=== PATIENT | female | born 1995 | race Hispanic/Latino ===

== ENCOUNTER → 2016-07-04 | Outpatient (REF) | payer BC ==
[2016-07-04 19:37] LABS: BASO % 0.4 % (0.0-1.0); EOS # 0.2 K/mm3 (0.0-0.50); EOS % 2.3 % (0.0-3.0); LARGE UNSTAINED CELL # 0.2 K/mm3 (0.0-0.4); LARGE UNSTAINED CELL % 2.5 % (0.0-4.0); LYMPH # 2.1 K/mm3 (1.5-6.5); LYMPH % 29.6 % (24.0-44.0); MEAN CORPUSCULAR HEMOGLOBIN 24.6 pg (27.0-33.0); MEAN CORPUSCULAR HGB CONC 30.8 g/dl (32.0-36.5); MEAN CORPUSCULAR VOLUME 79.9 fl (80.0-96.0); MONO # 0.4 K/mm3 (0.0-0.8); MONO % 5.4 % (0.0-5.0); NEUTROPHILS # 4.2 K/mm3 (1.8-7.7); NEUTROPHILS % 59.8 % (36.0-66.0); PLATELET COUNT, AUTOMATED 296 k/mm3 (150-450); RED CELL DISTRIBUTION WIDTH 15.7 % (11.5-14.5)
[2016-07-04 20:25] LABS: FERRITIN 8 NG/ML (8-252); PERCENT SATURATION 42.7 % (13.2-37.4); TOTAL IRON BINDING CAPACITY 443 UG/DL (250-450)
[2016-07-04 20:29] LABS: VITAMIN B12 LEVEL 874 PG/ML
[2016-07-04 20:30] LABS: FOLATE > 24.0 NG/ML
== END ==
LOC: M SFHCADAM 13:52
PROVIDERS: ATTEND Physician Assistant Medical
DX: Z86.2 Personal history of diseases of the blood and blood-forming organs and certain disorders involving the immune mechanism (principal)

== ENCOUNTER 2016-09-30 19:30 | Emergency (ER) | payer BC, OTHER ==
[~2016-09-30] VITALS: Ht 160 cm; Wt 68.0 kg
[2016-09-30 19:38] VITALS: BP 125/88
[2016-09-30] MEDS ORDERED: TOPA50TA7 PO (19:42)
[2016-09-30] MEDS ORDERED: SUMA25TA3 (19:42)
[2016-09-30] MEDS ORDERED: NAPR500T PO (20:17)
[2016-09-30] MEDS ORDERED: VALI5TAB PO (20:17)
== END 2016-09-30 20:31 | disposition home or self-care (01) ==
LOC: M ED 20:22
DX: M54.5 Low back pain (principal)

== ENCOUNTER → 2016-11-07 | Outpatient (REF) | payer OTHER ==
[~2016-11-07] MED LIST: NAPR500T PO; SUMA25TA3; TOPA50TA7 PO; VALI5TAB PO
[2016-11-07 22:08] LABS: BASO % 0.4 % (0.0-1.0); EOS # 0.2 K/mm3 (0.0-0.50); EOS % 1.6 % (0.0-3.0); LARGE UNSTAINED CELL # 0.2 K/mm3 (0.0-0.4); LARGE UNSTAINED CELL % 1.7 % (0.0-4.0); LYMPH # 2.4 K/mm3 (1.5-6.5); LYMPH % 25.5 % (24.0-44.0); MEAN CORPUSCULAR HGB CONC 33.2 g/dl (32.0-36.5); MEAN CORPUSCULAR VOLUME 90.3 fl (80.0-96.0); MONO # 0.5 K/mm3 (0.0-0.8); MONO % 4.8 % (0.0-5.0); NEUTROPHILS # 6.2 K/mm3 (1.8-7.7); NEUTROPHILS % 65.9 % (36.0-66.0); PLATELET COUNT, AUTOMATED 284 k/mm3 (150-450); RED CELL DISTRIBUTION WIDTH 12.7 % (11.5-14.5); WHITE BLOOD COUNT 9.4 K/mm3 (4.0-10.0)
== END ==
LOC: M LAB REF 10:04
PROVIDERS: ATTEND Physician Assistant
DX: R59.0 Localized enlarged lymph nodes (principal)

== ENCOUNTER → 2017-03-03 | Outpatient (CLI) | payer OTHER ==
[~2017-03-03] MED LIST changes: -TOPA50TA7 PO; +TOPA50TA8 PO
--- NOTE | 2017-03-03 18:45 | REP ---
Focused left breast sonography: History: Left breast enlargement. Findings: Retroareolar scanning in the left breast demonstrates heterogeneous fibroglandular background echotexture. No mass, cyst, architectural distortion or acoustic shadowing is seen. Impression: BIRADS category II benign focused left breast sonography. Clinical follow-up is advised. Signed by José Miguel Alvarez MD 03/03/2017 06:56 P
== END ==
LOC: M RAD 17:19
PROVIDERS: ATTEND Physician Assistant
DX: N64.9 Disorder of breast, unspecified (principal)

== ENCOUNTER → 2017-07-03 | Outpatient (REF) | payer OTHER | LOC: M LAB REF 18:55 | DX: M54.5 Low back pain (principal) | CPT/HCPCS: 87086 ==

== ENCOUNTER → 2017-07-17 | Outpatient (REF) | payer OTHER ==
[2017-07-17 22:29] LABS: HEMATOCRIT 36.9 % (36.0-47.0); HEMOGLOBIN 11.6 g/dl (12.0-16.0); MEAN CORPUSCULAR HGB CONC 31.4 g/dl (32.0-36.5); MEAN CORPUSCULAR VOLUME 92.3 fl (80.0-96.0); PLATELET COUNT, AUTOMATED 245 10^3/uL (150-450); RED CELL DISTRIBUTION WIDTH 13.6 % (11.5-14.5)
[2017-07-17 22:44] LABS: ALBUMIN/GLOBULIN RATIO 1.25 (1.00-1.93); ALKALINE PHOSPHATASE 60 U/L (45-117); ALT/SGPT 40 U/L (12-78); ANION GAP 6 MEQ/L (8-16); AST/SGOT 18 U/L (7-37); BILIRUBIN,TOTAL 0.2 MG/DL (0.2-1.0); BLOOD UREA NITROGEN 14 MG/DL (7-18); CARBON DIOXIDE LEVEL 29 MEQ/L (21-32); CHLORIDE LEVEL 107 MEQ/L (98-107); FERRITIN 28 NG/ML (8-252); GLOMERULAR FILTRATION RATE > 60.0 (>60); GLUCOSE, FASTING 123 MG/DL (70-100); IRON (FE) 75 UG/DL (50-170); PERCENT SATURATION 21.9 % (13.2-45.0); POTASSIUM SERUM 3.7 MEQ/L (3.5-5.1); SODIUM LEVEL 142 MEQ/L (136-145); TOTAL IRON BINDING CAPACITY 343 UG/DL (250-450); TOTAL PROTEIN 7.2 GM/DL (6.4-8.2)
[2017-07-18 10:52] LABS: VITAMIN B12 LEVEL 953 PG/ML
[2017-07-18 10:53] LABS: FOLATE > 24.0 NG/ML
== END ==
LOC: M SFHCADAM 14:01
DX: N64.4 Mastodynia (principal); R53.82 Chronic fatigue, unspecified; R63.5 Abnormal weight gain; D50.9 Iron deficiency anemia, unspecified

== ENCOUNTER → 2017-10-24 | Outpatient (REF) | payer OTHER ==
[2017-10-24 18:49] LABS: BASO % 0.4 % (0.0-1.0); EOS # 0.1 10^3/uL (0.0-0.50); EOS % 0.9 % (0.0-3.0); HEMATOCRIT 40.7 % (36.0-47.0); HEMOGLOBIN 13.4 g/dl (12.0-15.5); IMMATURE GRANULOCYTE % 0.3 % (0-3.0); LYMPH # 2.6 10^3/uL (1.5-6.5); LYMPH % 24.4 % (24.0-44.0); MEAN CORPUSCULAR HEMOGLOBIN 28.9 pg (27.0-33.0); MEAN CORPUSCULAR HGB CONC 32.9 g/dl (32.0-36.5); MEAN CORPUSCULAR VOLUME 87.9 fl (80.0-96.0); MONO # 0.6 10^3/uL (0.0-0.8); NEUTROPHILS # 7.2 10^3/uL (1.8-7.7); PLATELET COUNT, AUTOMATED 278 10^3/uL (150-450); RED BLOOD COUNT 4.63 10^6/uL (4.00-5.40); RED CELL DISTRIBUTION WIDTH 12.9 % (11.5-14.5); WHITE BLOOD COUNT 10.5 10^3/uL (4.0-10.0)
[2017-10-24 19:03] LABS: FERRITIN 19 NG/ML (8-252); IRON (FE) 61 UG/DL (50-170); PERCENT SATURATION 16.4 % (13.2-45.0); TOTAL IRON BINDING CAPACITY 371 UG/DL (250-450)
[2017-10-24 21:12] LABS: TOTAL 25(OH) VITAMIN D 28.9 NG/ML (30.0-100.0)
== END ==
LOC: M SFHCADAM 15:41
DX: E55.9 Vitamin D deficiency, unspecified (principal); D50.9 Iron deficiency anemia, unspecified

== ENCOUNTER → 2017-10-28 | Outpatient (REF) | payer OTHER ==
[2017-10-29 09:44] LABS: HCG, SERUM QUANTITATIVE 373 MIU/ML
== END ==
LOC: M SFHCADAM 09:16
DX: N91.2 Amenorrhea, unspecified (principal)

== ENCOUNTER → 2017-12-04 | Outpatient (CLI) | payer OTHER ==
[2017-12-04 20:07] LABS: BASO % 0.3 % (0.0-1.0); EOS # 0.2 10^3/uL (0.0-0.50); EOS % 1.6 % (0.0-3.0); HEMATOCRIT 38.4 % (36.0-47.0); HEMOGLOBIN 12.7 g/dl (12.0-15.5); IMMATURE GRANULOCYTE % 0.4 % (0-3.0); LYMPH # 2.2 10^3/uL (1.5-6.5); LYMPH % 20.1 % (24.0-44.0); MEAN CORPUSCULAR HGB CONC 33.1 g/dl (32.0-36.5); MEAN CORPUSCULAR VOLUME 87.7 fl (80.0-96.0); MONO # 0.7 10^3/uL (0.0-0.8); MONO % 6.7 % (0.0-5.0); NEUTROPHILS # 7.6 10^3/uL (1.8-7.7); NEUTROPHILS % 70.9 % (36.0-66.0); PLATELET COUNT, AUTOMATED 285 10^3/uL (150-450); RED BLOOD COUNT 4.38 10^6/uL (4.00-5.40); RED CELL DISTRIBUTION WIDTH 13.3 % (11.5-14.5); WHITE BLOOD COUNT 10.7 10^3/uL (4.0-10.0)
[2017-12-04 21:51] LABS: CHLAMYDIA DNA AMPLIFICATION NEGATIVE (NEGATIVE); GC DNA AMPLIFICATION NEGATIVE (NEGATIVE)
[2017-12-05 10:25] LABS: RUBELLA IgG QUALITATIVE IMMUNE (IMMUNE)
[2017-12-05 10:37] LABS: HBsAg Prenatal NEGATIVE (NEGATIVE)
[2017-12-05 10:56] LABS: HEPATITIS C VIRUS ABY INDEX 0.1 INDEX (<0.8)
[2017-12-05 10:57] LABS: HIV 1&2 SCREEN CENTAUR NEGATIVE (NEGATIVE)
== END ==
LOC: M ADAMS 17:29
DX: Z34.81 Encounter for supervision of other normal pregnancy, first trimester (principal); Z3A.08 8 weeks gestation of pregnancy
CPT/HCPCS: 86762

== ENCOUNTER → 2018-02-05 | Outpatient (CLI) | payer OTHER | LOC: M RAD 09:05 | DX: Z34.82 Encounter for supervision of other normal pregnancy, second trimester (principal); Z36.89 Encounter for other specified antenatal screening; Z3A.18 18 weeks gestation of pregnancy | CPT/HCPCS: 76811 ==

== ENCOUNTER → 2018-02-25 | Outpatient (CLI) | payer OTHER | LOC: M RAD 10:05 | DX: Z36.89 Encounter for other specified antenatal screening (principal); Z3A.22 22 weeks gestation of pregnancy | CPT/HCPCS: 76816 ==

== ENCOUNTER → 2018-04-01 | Outpatient (CLI) | payer OTHER ==
[2018-04-01 13:13] LABS: HEMATOCRIT 33.7 % (36.0-47.0); HEMOGLOBIN 10.9 g/dl (12.0-15.5); MEAN CORPUSCULAR HEMOGLOBIN 29.4 pg (27.0-33.0); MEAN CORPUSCULAR HGB CONC 32.3 g/dl (32.0-36.5); MEAN CORPUSCULAR VOLUME 90.8 fl (80.0-96.0); PLATELET COUNT, AUTOMATED 269 10^3/uL (150-450); RED BLOOD COUNT 3.71 10^6/uL (4.00-5.40); RED CELL DISTRIBUTION WIDTH 12.8 % (11.5-14.5); WHITE BLOOD COUNT 10.5 10^3/uL (4.0-10.0)
[2018-04-01 13:30] LABS: GLUCOSE CHALLENGE TEST 1 HOUR 98 MG/DL (LESS THAN 140)
[2018-04-02 08:47] LABS: TYPE AND SCREEN 1 1
== END ==
LOC: M LAB 11:36
DX: Z34.82 Encounter for supervision of other normal pregnancy, second trimester (principal); Z3A.00 Weeks of gestation of pregnancy not specified
CPT/HCPCS: 82950

== ENCOUNTER → 2018-06-12 | Outpatient (REF) | payer OTHER ==
[~2018-06-12] MED LIST changes: +NAPR-50 PO; -NAPR500T PO
== END ==
LOC: M LAB REF 12:44
PROVIDERS: ATTEND Advanced Practice Midwife
DX: Z34.93 Encounter for supervision of normal pregnancy, unspecified, third trimester (principal)

== ENCOUNTER 2018-07-01 15:00 | Inpatient (IN) | payer OTHER ==
[~2018-07-01] VITALS: Ht 160 cm; Wt 88.8 kg
[2018-07-01 15:17] VITALS: BP 128/80
[2018-07-01] MEDS ORDERED: MAPA500T2 PO (15:20)
[2018-07-01] MEDS ORDERED: LR 1,000 ML IV SCH (15:46)
[2018-07-01] MEDS ORDERED: LACTATED RINGER'S 1000 ML IV STA (15:46)
[2018-07-01] MEDS ORDERED: PENICILLIN G POTASSIUM IV 5 MU in D5W MINI-BAG PLUS 100 ML IV STA (15:46)
--- NOTE | 2018-07-01 16:06 | HPE ---
DATE OF ADMISSION: 07/01/2018 Ana Luisa is a 23-year-old 2, para 1-0-0-1 at 39-4/7 weeks gestation with an estimated date of confinement (EDC) of 07/04/2018 based on last menstrual period and confirmed by first trimester ultrasound. She presents to labor and delivery today with report of onset of uncomfortable contractions at approximately 09:30. She does report that they continue to get more painful and closer together. She reports that they are about every four minutes apart. She does report some light spotting. Denies leakage of fluid. The fetus has been active. Her care was initiated at [facility] in the first trimester. Her course complicated by a prior section with a desire for a trial of labor after section today. OBSTETRIC HISTORY: February 2010 at 39-2/7 weeks, 6 pounds, 2 ounce female, underwent primary section for breech presentation. OBSTETRIC LABORATORY DATA: A negative. Antibody screen negative, rubella immune, VDRL nonreactive. Urine culture no growth. Hepatitis B surface antigen negative. HIV negative. Hepatitis C antibody nonreactive. Gonorrhea and chlamydia negative. She did not have genetic serum screening laboratories done. Gestational diabetic screening normal at 98 and her GBS is positive. PAST MEDICAL HISTORY: History of an abnormal Pap smear. PAST SURGICAL HISTORY: section. FAMILY HISTORY: Diabetes, heart disease. SOCIAL HISTORY: The patient is single. The father of the baby is at bedside and supportive as well as family members. She is a nonsmoker. She denies alcohol and drug use. She denies any history of any sexually transmitted infections and denies history of abuse, physical, sexual and emotional. ALLERGIES: No known drug allergies. Reports an allergy to CASHEWS. CURRENT MEDICATIONS: Include vitamins, vitamin D, fish oil, folic acid, Fioricet as needed, and calcium. OBJECTIVE: Temperature 98.5, pulse 88, respirations 18, blood pressure is 128/80. She does appear uncomfortable. She is moaning with her contractions. heart rate is 135 with moderate variability, positive accelerations, no decelerations. Contractions are every three minutes. Abdomen is gravid, cephalic presentation. Estimated weight 7 pounds. Sterile vaginal examination: 4 cm dilated, 80% effaced, zero station, normal show. Membranes are intact. ASSESSMENT: Intrauterine at 39-4/7 weeks, heart rate category 1, early latent labor. PLAN: Admit the patient to labor and delivery. Routine laboratories. Start antibiotics for group B Streptococcus (GBS) prophylaxis. Clear liquid diet. The patient does request an epidural when her labor is uncomfortable. I will have an IV fluid bolus prior to epidural insertion. I do anticipate continued labor progress. May consider assisted rupture of membranes to augment her labor as well as IV Pitocin as needed. Dr. Parra made aware of the patient's presentation and latent labor at this time.
[2018-07-01 16:27] LABS: HEMATOCRIT 34.5 % (36.0-47.0); HEMOGLOBIN 10.9 g/dl (12.0-15.5); MEAN CORPUSCULAR HEMOGLOBIN 26.6 pg (27.0-33.0); MEAN CORPUSCULAR HGB CONC 31.6 g/dl (32.0-36.5); MEAN CORPUSCULAR VOLUME 84.1 fl (80.0-96.0); PLATELET COUNT, AUTOMATED 192 10^3/uL (150-450); WHITE BLOOD COUNT 13.3 10^3/uL (4.0-10.0)
[2018-07-01] MEDS ORDERED: FENTANYL 2MCG/ML ROPIVACAINE 0.2% IN 0.9% NACL 100ML IVBAG As Ordered ONE (17:34)
[2018-07-01] MEDS ORDERED: ONDANSETRON 4MG/2ML VIAL (J2405) IV PRN ×2 (19:00→20:15)
[2018-07-01] MEDS ORDERED: EPIDURAL COMMENT XX SCH (19:00)
[2018-07-01] MEDS ORDERED: REFRIGERATOR IV KEYS XX PRN (19:00)
[2018-07-01] MEDS ORDERED: NALOXONE INJ 0.4 MG/1 ML VIAL (J2310) IV PRN (19:00)
[2018-07-01] MEDS ORDERED: diphenhydrAMINE INJ 50MG/ML VIAL (J1200) IV PRN (19:00)
[2018-07-01] MEDS ORDERED: EPIDURAL/PCA KEYS XX PRN (19:00)
[2018-07-01] MEDS ORDERED: FENTANYL/ROPIVACAINE/NACL BAG 100 ML EPIDURAL SCH (19:00)
[2018-07-01] MEDS ORDERED: OXYTOCIN 30 UNITS IN 0.9% NaCl 500ML IV BAG (J2590) As Ordered ONE (19:08)
[2018-07-01] MEDS ORDERED: OXYTOCIN DRIP 30 UNITS in APPROPRIATE DILUENT 1 EA IV SCH (20:02)
[2018-07-01] MEDS ORDERED: IBUPROFEN 800 MG TAB PO PRN (20:15)
[2018-07-01] MEDS ORDERED: MEASLES,MUMPS,RUBELLA VACCINE INJ (MMR-II) (90707) SC SCH (20:15)
[2018-07-01] MEDS ORDERED: DIBUCAINE 1% OINTMENT 30GM TOP PRN (20:15)
[2018-07-01] MEDS ORDERED: RHOGAM 300 MCG (1500 IU) INJ (J2790) IM SCH (20:15)
[2018-07-01] MEDS ORDERED: MOM 30ML SUSPENSION UDC PO PRN (20:15)
[2018-07-01] MEDS ORDERED: METHYLERGONOVINE MALEATE 0.2 MG TAB PO PRN (20:15)
[2018-07-01] MEDS ORDERED: DOCUSATE SODIUM 100 MG CAP PO PRN (20:15)
[2018-07-01] MEDS ORDERED: ANUSOL HC CREAM 30GM TOP PRN (20:15)
[2018-07-01] MEDS ORDERED: PENICILLIN G POTASSIUM IV 2.5 MU in APPROPRIATE DILUENT 1 EA IV SCH (20:30)
[2018-07-01 22:27] VITALS: BP 123/66
--- NOTE | 2018-07-02 05:22 | DN ---
DATE OF DELIVERY: 06/25/2017 Ana Luisa is a 23-year-old 2, para 2-0-0-2 now who was admitted to labor and delivery in latent labor. She did progress through her labor physiologically, utilized an epidural for her labor coping. She had spontaneous rupture of membranes for a small amount of clear odorless fluid at 1715. She reached full dilation at 1818. She pushed to a normal spontaneous vaginal delivery of a live male infant in occiput anterior (OA) position with restitution to right occiput transverse (ROT) position at 1957. There was no nuchal cord. The shoulders delivered with gentle downward traction and the corpus immediately followed. [place] male was placed on maternal abdomen crying and active. His mouth and nares were bulb suctioned. The cord was clamped once pulsations ceased and cut by the father of the baby under my direction. Spontaneous expulsion of an intact placenta with three-vessel cord by Boudreaux mechanism was at 2007. Uterine hemostasis was achieved with IV Pitocin rapid infusion and uterine fundal massage. Estimated blood loss 300 mL. Perineum and vagina were inspected noted to have a left labial laceration as well as a first-degree midline laceration. The laceration was repaired with 3-0 Rapide in the usual fashion. [place] male weighed 7 pounds 12 ounces, 3520 grams, 9 and 10. Mom is going to bottle feed her son and the family have named him Jeff. At the close of delivery lap counts, needle counts, instrument counts were correct and verified. [facility]
[2018-07-02 06:45] VITALS: BP 134/66
[2018-07-02] MEDS: PRENATAL VITAMINS CHEWABLE TABLET PO SCH (07:53)
[2018-07-02] MEDS: ACETAMINOPHEN 500 MG TAB PO PRN ×2 (07:53→21:04)
[2018-07-02 18:00] VITALS: BP 121/59
[2018-07-03 06:00] VITALS: BP 114/58
[2018-07-03] MEDS: PRENATAL VITAMINS CHEWABLE TABLET PO SCH (09:58)
[2018-07-03] MEDS ORDERED: MOM30SS PO (11:41)
[2018-07-03] MEDS ORDERED: PRENTAB9 PO (11:41)
[2018-07-03] MEDS ORDERED: MAPA500T2 PO (11:41)
[2018-07-03] MEDS ORDERED: IBUP-1114 PO (11:41)
[2018-07-03] MEDS ORDERED: COLA100C5 PO (11:41)
== END 2018-07-03 13:55 | disposition home or self-care (01) | DRG 560 ==
LOC: M LDO 15:00 → M LDI 15:44 → M OBS 22:26 → UNDODISIN 07-03 12:55
PROVIDERS: ADMIT Advanced Practice Midwife; ATTEND Advanced Practice Midwife
PROC: 10E0XZZ Delivery of Products of Conception, External Approach (ICD-10-PCS; principal; 2018-07-01)
PROC: 0HQ9XZZ Repair Perineum Skin, External Approach (ICD-10-PCS; 2018-07-01)
DX: O34.211 Maternal care for low transverse scar from previous cesarean delivery (principal); Z3A.39 39 weeks gestation of pregnancy; O99.824 Streptococcus B carrier state complicating childbirth; O70.0 First degree perineal laceration during delivery; Z37.0 Single live birth

== ENCOUNTER → 2019-10-15 | Outpatient (REF) | payer OTHER ==
[~2019-10-15] MED LIST changes: +COLA100C5 PO; +IBUP-1114 PO; +MAPA500T2 PO; +MOM30SS PO; -NAPR-50 PO; +NAPR-837 PO; +PRENTAB9 PO
== END ==
LOC: M SFHCWAGY 17:41
PROVIDERS: ATTEND Advanced Practice Midwife
DX: Z12.4 Encounter for screening for malignant neoplasm of cervix (principal)

== ENCOUNTER → 2019-10-26 | Outpatient (REF) | payer OTHER ==
[~2019-10-26] MED LIST changes: +HYDR-3715 PO; +IRON325T9 PO; +OMEP40CA97 PO; +QC F0.52 PO; +SUMA25TA3 PO; +vitamin d3 PO
[2019-10-26 18:09] LABS: HEMATOCRIT 43.9 % (36.0-47.0); MEAN CORPUSCULAR HEMOGLOBIN 27.8 pg (27.0-33.0); MEAN CORPUSCULAR HGB CONC 31.9 g/dl (32.0-36.5); MEAN CORPUSCULAR VOLUME 87.1 fl (80.0-96.0); PLATELET COUNT, AUTOMATED 318 10^3/uL (150-450); RED BLOOD COUNT 5.04 10^6/uL (4.00-5.40); WHITE BLOOD COUNT 7.6 10^3/uL (4.0-10.0)
[2019-10-26 18:17] LABS: PERCENT SATURATION 11.8 % (13.2-45.0)
[2019-10-26 18:22] LABS: TOTAL 25(OH) VITAMIN D 24.9 NG/ML (30.0-100.0)
== END ==
LOC: M SFHCADAM 15:08
PROVIDERS: ATTEND Physician Assistant Medical
DX: E55.9 Vitamin D deficiency, unspecified (principal); D50.9 Iron deficiency anemia, unspecified

== ENCOUNTER 2020-05-31 13:07 | Emergency (ER) | payer OTHER ==
[~2020-05-31] VITALS: Ht 160 cm; Wt 75.0 kg
[~2020-05-31 13:07] MED LIST changes: -HYDR-3715 PO; -IRON325T9 PO; -OMEP40CA97 PO; -QC F0.52 PO; -SUMA25TA3 PO; -vitamin d3 PO
[2020-05-31] MEDS ORDERED: PANTOPRAZOLE 40MG VIAL (C9113 PER 1) IV ONE (14:15)
[2020-05-31] MEDS ORDERED: MORPHINE 2 MG/ML 1ML VIAL (J2270) IV ONE (14:15)
[2020-05-31] MEDS ORDERED: ONDANSETRON 4MG/2ML VIAL IV ONE (14:15)
[2020-05-31 14:18] LABS: BASO % 0.2 % (0.0-1.0); EOS # 0.2 10^3/uL (0.0-0.5); EOS % 1.2 % (0.0-3.0); HEMATOCRIT 44.3 % (36.0-47.0); HEMOGLOBIN 13.6 g/dl (12.0-15.5); LYMPH # 1.9 10^3/uL (1.5-5.0); LYMPH % 13.6 % (24.0-44.0); MEAN CORPUSCULAR HEMOGLOBIN 27.1 pg (27.0-33.0); MEAN CORPUSCULAR HGB CONC 30.7 g/dl (32.0-36.5); MEAN CORPUSCULAR VOLUME 88.2 fl (80.0-96.0); MONO # 0.5 10^3/uL (0.0-0.8); MONO % 3.9 % (0.0-5.0); NEUTROPHILS % 80.7 % (36.0-66.0); PLATELET COUNT, AUTOMATED 311 10^3/uL (150-450); RED BLOOD COUNT 5.02 10^6/uL (4.00-5.40); WHITE BLOOD COUNT 13.6 10^3/uL (4.0-10.0)
[2020-05-31 14:51] LABS: ALBUMIN 4.2 GM/DL (3.2-5.2); ALT/SGPT 46 U/L (12-78); BILIRUBIN,DIRECT 0.2 MG/DL (0.0-0.2); BILIRUBIN,TOTAL 0.6 MG/DL (0.2-1.0); BLOOD UREA NITROGEN 17 MG/DL (7-18); CALCIUM LEVEL 9.3 MG/DL (8.5-10.1); CARBON DIOXIDE LEVEL 27 MEQ/L (21-32); CHLORIDE LEVEL 104 MEQ/L (98-107); CK-MB VALUE MASS < 1.0 NG/ML (<3.6); CPK CREATINE PHOSPHOKINASE 206 U/L (26-192); CREATININE FOR GFR 1.08 MG/DL (0.55-1.30); GLOMERULAR FILTRATION RATE > 60.0 (>60); GLUCOSE, FASTING 107 MG/DL (70-100); HCG, SERUM QUANTITATIVE < 1.0 MIU/ML; LIPASE 220 U/L (73-393); MB/CK RELATIVE INDEX 0.49 (< OR =4); POTASSIUM SERUM 4.2 MEQ/L (3.5-5.1); SODIUM LEVEL 139 MEQ/L (136-145); TOTAL PROTEIN 7.9 GM/DL (6.4-8.2); TROPONIN I < 0.02 NG/ML (< 0.10)
--- NOTE | 2020-05-31 15:17 | REP ---
INDICATION: epigastric abd pain. COMPARISON: None. TECHNIQUE: Real-time sonographic evaluation of right upper quadrant performed. FINDINGS: Multiple innumerable gallstones fill the lumen of the gallbladder. There is no evidence of gallbladder wall thickening.. There is no intrahepatic or extrahepatic biliary dilatation, common bile duct measures 3 mm in maximum diameter. Liver demonstrates mildly increased echotexture diffusely suggesting some degree of fatty infiltration. No liver mass is seen. The pancreas demonstrates homogeneous echotexture with no gross mass. The right kidney demonstrates no hydronephrosis, with a normal size of 10.3 cm in length. No free fluid is seen. IMPRESSION: Multiple innumerable gallstones in the gallbladder. No gallbladder wall thickening, pericholecystic fluid or biliary dilatation. <Electronically signed by Bernardo Bertrand > 05/31/20 1093
[2020-05-31] MEDS ORDERED: OMEP40CA97 PO ×2 (15:49→16:04)
[2020-05-31 16:04] VITALS: BP 115/63
--- NOTE | 2020-06-01 13:23 | ECGEPIP ---
[facility] - ED Test Date: 2020-05-31 Pat Name: BELLE LITTLE Department: Room: - Gender: Female Invoicing Specialist: TC : 1995 Requested By: EDDIE Rebolledo PA-C Order Number: [id number] Reading MD: John Gentile Measurements Intervals [place] Rate: 89 P: 26 IL: 142 QRS: 7 QRSD: 96 T: 20 QT: 346 QTc: 423 Interpretive Statements SINUS RHYTHM NONSPECIFIC T WAVE ABNORMALITY(S) NO PRIORS FOR COMPARISON Electronically Signed on 06-01-2020 13:22:46 EST by John Gentile
== END 2020-05-31 16:06 | disposition home or self-care (01) ==
LOC: M ED 13:07
DX: K80.42 Calculus of bile duct with acute cholecystitis without obstruction (principal); F32.9 Major depressive disorder, single episode, unspecified; Z79.899 Other long term (current) drug therapy; Z91.018 Allergy to other foods
CPT/HCPCS: 36415; 76705; 80048; 80076; 82550; 82553; 83690; 84702; 85025; 93005; 96374; 96375; 99284; C9113; J2270; J2405

== ENCOUNTER → 2020-07-13 | Outpatient (CLI) | payer OTHER ==
[~2020-07-13] MED LIST changes: +IRON325T9 PO; +OMEP40CA97 PO; +QC F0.52 PO; +SUMA25TA3 PO; +vitamin d3 PO
== END ==
LOC: M LABSMTC 10:39
PROVIDERS: ATTEND Anesthesiology
DX: Z01.812 Encounter for preprocedural laboratory examination (principal); Z20.822 Contact with and (suspected) exposure to COVID-19

== ENCOUNTER 2020-07-18 08:27 | Day surgery (SDC) | payer OTHER ==
[~2020-07-18] VITALS: Ht 157.5 cm; Wt 83.5 kg
[~2020-07-18 08:27] MED LIST changes: +KETOROLAC 60MG 2ML VIAL As Ordered ONE; +LIDOCAINE 2% 100MG/5ML SDV (FOR ANES.) As Ordered ONE; +LR 1,000 ML IV ONE; +MIDAZOLAM INJ 2MG/2ML VIAL (J2250 PER 1MG) As Ordered ONE; +ONDANSETRON 4MG/2ML VIAL As Ordered ONE; +ROCURONIUM BROMIDE 50 MG/5 ML VIAL As Ordered ONE; +dexameTHASONE 4 MG/ML 1ML VIAL (J1100 PER 1MG) As Ordered ONE; +fentaNYL 250 MCG/5 ML INJECTION (J3010) As Ordered ONE; +propofoL 200 MG/20 ML VIAL As Ordered ONE
--- OUTSIDE RECORDS SUMMARY | 2020-07-18 08:33 | CCD ---
Author Author [facility] Organization [facility] Address Unknown Phone Unavailable Care Team Providers Care Parking Regulation Enforcement Officer Name Role Phone Susan Aguilar Unavailable PROBLEMS Type Condition ICD9-CM Code [id number] Code Onset Dates Condition S tatus SNOMED Code Notes Problem Annual physical exam Z00.00 Active 177236689 Problem Calculus of gallbladder without cholecystitis wi thout obstruction K80.20 Active 05285953 Problem Vitamin D deficiency, unspecified E55.9 Active 93715782 Problem Iron deficiency anemia, unspecified iron deficiency an emia type D50.9 Active 70244294 Problem Migraine without aura and without status migrain osus, not intractable G43.009 Active 529122903 ALLERGIES Allergen (clinical drug ingredient) Drug/Non Drug Allergy do cumented on EMR Reaction Allergy Type Onset Date Status Cashews tongue swells Non Drug Allergy Activ e ENCOUNTERS from 1994 to 2020-06-06 Encounter Location Date Provider Diagnosis [address] [place] [address] 18 May, 2020 Mar ia Lauren Calculus of gallbladder without cholecystitis without obstruction K80.20 IMMUNIZATIONS Vaccine Route Administration Date Status Influenza (36 months & up) (VFC) IM Intramuscular Jul 02, 2012 Administered Depo-Provera 150mg/1mL (Medroxy-Progestrone Acetate) IM Intr amuscular Jul 23, 2019 Administered Depo-Provera 150mg/1mL (Medroxy-Progestrone Acetate) IM Intr amuscular October 15, 2019 Administered Depo-Provera 150mg/1mL (Medroxy-Progestrone Acetate) IM Intr amuscular January 06, 2020 Administered Gardasil Unknown Aug 05, 2007 Administered Varicella 0.5mL (VariVax) Unknown January 09, 2007 Admini stered zz*Oral Polio(Historical (DO NOT USE) Unknown October 23 95 Administered zz*Oral Polio(Historical (DO NOT USE) Unknown December 23 995 Administered DTP Unknown 1994 Administered Hepatitis A Ped & Adol 0.5mL (Havrix) Unknown January 09 007 Administered MMR 0.5mL Unknown August 30, 1998 Administered MMR 0.5mL Unknown October 08, 1995 Administered HIB 0.5mL Unknown 1994 Administered HIB 0.5mL Unknown 1994 Administered DTP Unknown August 30, 1998 Administered DTP Unknown October 08, 1995 Administered DTP Unknown 1994 Administered IPV 0.5mL (Polio) Unknown August 30, 1998 Administered Hepatitis B Ped & Adol 0.5mL (Engerix-B) Unknown 1994 Administered Hepatitis B Ped & Adol 0.5mL (Engerix-B) Unknown September 141994 Administered Hepatitis B Ped & Adol 0.5mL (Engerix-B) Unknown November Administered Hepatitis A Ped & Adol 0.5mL (Havrix) Unknown Aug 05 08 Administered Influenza (6mo & up) Fluzone IM Intramuscular Jul 29, 2011 Ad ministered Meningococcal IM Intramuscular Apr 01, 2016 Administered TDAP Unknown January 09, 2007 Administered Gardasil Unknown January 09, 2007 Administered Gardasil Unknown Apr 23, 2007 Administered SOCIAL HISTORY Tobacco Use: Social History Observation Description Date Details (start date - stop date) Never Smoker Sex Assigned At : Social History Observation Description Sex Assigned At Unknown Alcohol Screening: Question Answer Notes Did you have a drink containing alcohol in the past year? No Points 0 Interpretation Negative Tobacco Use: Question Answer Notes Are you a: never smoker REASON FOR REFERRAL No Information VITAL SIGNS No information MEDICATIONS Medication SIG (Take, Route, Frequency, Duration) Notes Start Da te End Date Status Ferrous Gluconate 324 (38 Fe) MG 1 tablet with water o r juice between meals Orally Once a day for 30 Active Topamax 50 mg 1 tablet Orally twice daily, prn for 30 day(s) Jan, Unknown Imitrex 25 MG 1 tablet at least 2 hours be tween doses as needed Orally Twice a day for 30 Days Active Vitamin D 50 MCG (1999) 1 tablet Orally Once a day for 30 Active Depo-Provera 150 MG/ML 1 ml Intramuscular Active Multivitamin Adult - as directed Orally Active PROCEDURES No Information RESULTS No Results REASON FOR VISIT ER Visit [facility] 05/31;abd pain MEDICAL (GENERAL) HISTORY Type Description Date Medical History migraines Medical History Vit D def Medical History depression Medical History allergic rhinitis Medical History iron def anemia 06/2016 related to blood donation Surgical History C section, d/t breech baby 02/2010 Hospitalization History childbirth 02/23 Hospitalization History vaginal delivery 06/2018 Goals Section No Information Health Concerns No Information MEDICAL EQUIPMENT No Information MENTAL STATUS No Information FUNCTIONAL STATUS No Information ASSESSMENTS Encounter Date Diagnosis Assessment Notes Treatment Notes Treatm ent Clinical Notes May, Calculus of gallbladder with out cholecystitis without obstruction (ICD-10 - K80.20) Pt is scheduled with GS /, she is doing well, enc continued low fat diet. PLAN OF TREATMENT Treatment Notes Assessment Notes Clinical Notes Calculus of gallbladder without cholecystitis without obstruction Pt is scheduled with GS /, she is doing well, enc continued low fat diet. Next Appt Details prn Reason: Insurance Providers Payer Name Payer Address Payer Phone Insured Name Patient Relati onship to Insured Coverage Start Date Coverage End Date [facility] [employer] [facility] [address] [facility] [id number] [phone] BELLE LITTLE self
--- OUTSIDE RECORDS SUMMARY | 2020-07-18 08:33 | CCD ---
Author Author [facility] Organization [facility] Address Unknown Phone Unavailable Care Team Providers Care Hospital Laboratory Technician Name Role Phone Susan Aguilar Unavailable PROBLEMS Type Condition ICD9-CM Code XWP84-VL Code Onset Dates Condition S tatus SNOMED Code Notes Problem Annual physical exam Z00.00 Active 698377483 Problem Calculus of gallbladder without cholecystitis wi thout obstruction K80.20 Active 02194977 Problem Vitamin D deficiency, unspecified E55.9 Active 31430510 Problem Iron deficiency anemia, unspecified iron deficiency an emia type D50.9 Active 98548388 Problem Migraine without aura and without status migrain osus, not intractable G43.009 Active 048785323 ALLERGIES Allergen (clinical drug ingredient) Drug/Non Drug Allergy do cumented on EMR Reaction Allergy Type Onset Date Status Cashews tongue swells Non Drug Allergy Activ e ENCOUNTERS from 1994 to 2020-07-05 Encounter Location Date Provider Diagnosis [address] [place] [address] Jun, Nayeli Aguilar IMMUNIZATIONS Vaccine Route Administration Date Status Influenza [...] Notes Start Da te End Date Status Depo-Provera 150 MG/ML 1 ml Intramuscular Active Imitrex 25 MG 1 tablet at least 2 hours be tween doses as needed Orally Twice a day for 30 Days Active Multivitamin Adult - as directed Orally Active Ferrous Gluconate 324 (38 Fe) MG 1 tablet with water o r juice between meals Orally Once a day for 30 Active Omeprazole 40 MG 1 capsule 30 minutes before morning meal Orally Once a day for 30 day(s) 19 Vijay, 2021 Active Vitamin D 50 MCG (1999 [place]) 1 tablet Orally Once a day for 30 Active Topamax 50 mg 1 tablet Orally twice daily, prn for 30 day(s) Jan, Unknown PROCEDURES No Information RESULTS No Results REASON FOR VISIT omeprazole MEDICAL (GENERAL) HISTORY Type Description Date Medical [...] No Information FUNCTIONAL STATUS No Information ASSESSMENTS No Information PLAN OF TREATMENT Medication Medication Name Sig Start Date Stop Date Omeprazole 40 MG 1 capsule 30 minutes before morning meal Orally Once a day for 30 day(s) Jun, Insurance Providers Payer Name Payer Address Payer Phone Insured Name Patient Relati onship to Insured Coverage Start Date Coverage End Date [facility] COMM[employer] PLAN [facility] [address] [facility] [id number] [phone] BELLE LITTLE self
--- OUTSIDE RECORDS SUMMARY | 2020-07-18 08:33 | CCD | Continuity of Care Document ---
Author Author Ana Luisa JARRELL M.D. Organization Unknown Address [address], [address] [address] Phone [phone] Care Team Providers Care Personal Security Specialist Name Role Phone Susan Aguilar R.P.A. AUTM [phone] Problems Description No Information Available Social History Type Date Description Comments Sex Unknown Cigarette Use Non Smoker ETOH Use Denies alcohol use Recreational Drug Use Denies Drug Use Tobacco Use Start: Unknown Denies Smoking CONNOR: 07/06/2018 Estimated Date of Delivery Based on 1st Ultrasound Allergies, Adverse Reactions, Alerts Description No Known Drug Allergies Medications Active Medications SIG Qnty Indications Ordering Provide r Date Vitamin D 1000Unit Tablets 1/2 tab by mouth qd Unknown Tablets 1 by asa th every day Unknown Iron 325(65Fe) mg Tablets take 1 tablet by mouth daily. Unknown Omeprazole 40mg Capsules DR 1 by mouth every day Unknown Sumatriptan Succinate 50mg Tablets prn Migraine Unknown Fibercon 625mg Tablets 2 by mouth twice a day Unknown Immunizations CPT Code Status Date Vaccine Lot # [id number] Given 04/30/2018 Tetanus, Diphthe cara Toxoids/Acellular Pertussis Vaccine 7 Or > [id number] Given 04/16/2018 Rho(D) Immune Globulin Full Dose Intramuscular Vital Signs Date Vital Result Comment 06/19/2020 10:54am BP Systolic 125 mmHg BP Diastolic 72 mmHg Height 62 inches 5'2" Weight 189.00 lb BMI (Body Mass Index) 34.6 kg/m2 [place] Body Weight 110 lb Weight 85.730 kg BSA (Body Surface Area) 1.87 m2 09/25/2018 9:21am BP Systolic 102 mmHg BP Diastolic 60 mmHg Height 62 inches 5'2" Weight 168.00 lb BMI (Body Mass Index) 30.7 kg/m2 [place] Body Weight 110 lb Weight 76.205 kg BSA (Body Surface Area) 1.78 m2 Results Description No Information Available Procedures Description No Information Available Medical Devices Description No Information Available Encounters Description No Information Available Assessments Description No Information Available Plan of Treatment 02/04/2012 - Alba Parra MD* 789.09 Pain Abdominal Other Spec Site* Comments:* urine g/c. cont ibupofenf/u in 1 month Functional Status Description No Information Available Mental Status Description No Information Available Referrals Refer to Reason for Referral Status Appt Date Hernan Jarrell M.D. EPIGASTRIC PAIN, RUQ PAIN, GALLSTONES. C reated 06/19/2020 [facility] [address] [address] [phone]
--- OUTSIDE RECORDS SUMMARY | 2020-07-18 08:33 | CCD ---
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 If such information is present, then the following federally mandated warning applies: This information has been disclosed to you from records protected by federal confidentiality rules (42 CFR part 2). The federal rules prohibit you from making any further disclosure of this information unless further disclosure is expressly permitted by the written consent of the person to whom it pertains or as otherwise permitted by 42 CFR part 2. A general authorization for the release of medical or other information is NOT sufficient for this purpose. The Federal rules restrict any use of the information to criminally investigate or prosecute any alcohol or drug abuse patient.The records that you are about to access may contain highly sensitive health information, the redisclosure of which is protected by Article 27-F of the [facility] Public Health law. If you continue you may have access to information: Regarding HIV / AIDS; Provided by facilities licensed or operated by the [facility] Office of Mental Health; or Provided by the [facility] Office for People With Developmental Disabilities. If such information is present, then the following [facility] mandated warning applies: This information has been disclosed to you from confidential records which are protected by state law. State law prohibits you from making any further disclosure of this information without the specific written consent of the person to whom it pertains, or as otherwise permitted by law. Any unauthorized further disclosure in violation of state law may result in a fine or intermediate sentence or both. A general authorization for the release of medical or other information is NOT sufficient authorization for further disc losure. Allergies and Adverse Reactions Type Description Substance Reaction Status Data Source(s ) Cashwillam Mcmahan Cashews tongue swells Active eCW1 ([facility]) Cashwillam Cashwillam Cashews tongue swells Active eCW1 ([facility]) Family History Family Member Name Family Member Gender Family Member Status Date o f Status Description Data Source(s) Unknown Unknown Problem MEDENT ([facility]) mgf Encounters Encounter Providers Location Date Indications Data Source(s ) Unknown [address] [facility], [facility] [address] 07/04/2020 12:00:00 AM EST eCW1 ([facility]) TeleMedicine Phone E/M by Chitra 5-10 Min [address] [place] [address] 06/02/2020 12:00:00 AM EST eCW1 ([facility]) Unknown [address] [facility] [address] 06/02/2020 12:00:00 AM EST eCW1 ([facility]) Unknown [address] [facility] [address] 06/01/2020 12:00:00 AM EST eCW1 ([facility]) Outpatient Attender: JUN PERSAUD LERAYDC 04/11/2020 11:54:[address] [facility] Outpatient Attender: JUN PERSAUDFH ROLANDALA 04/11/2020 10:30:[address] [facility] Out[facility]: [facility] 04/11/2020 10:15:[address] [facility] Outpatient Attender: [facility] 04/11/2020 08:59:[address] [facility] Outpatient Attender: [facility] R[facility] 03/07/2020 12:32:[address] [facility] Out[facility] Att[facility]: [facility] 03/07/2020 08:43:00 AM EDT [facility] [address] [facility] [address] 02/01/2020 12:00:00 AM EDT eCW1 ([facility]) Outpatient Att[facility]: [facility] 01/27/2020 04:02:[address] [facility] ([facility]) [facility] Nurse Visit [address] [place] [address] 01/06/2020 12:00:00 AM EDT eCW1 ([facility]) [facility] [address] [facility] [address] 10/29/2019 12:00:00 AM EDT eCW1 ([facility]) [facility] [address] [facility] [address] 10/26/2019 12:00:00 AM EDT eCW1 ([facility]) [address] [address] 10/25/2019 12:00:00 AM EDT eCW1 ([facility]) Outpatient Att[facility]: [facility] CECILIA 10/19/2019 09:09:[address] [facility] Outpatient Attender: [facility] 10/19/2019 09:08:[address] [facility] Outpatient Attender: [facility] 10/19/2019 09:05:02 AM EDT [facility] [address] [place] [address] 10/15/2019 12:00:00 AM EDT eCW1 ([facility]) [facility] Tamayo [address] [facility], [facility] [address] 08/20/2019 12:00:00 AM EST eCW1 ([facility]) [facility] [address] [place] [address] 07/23/2019 12:00:00 AM EST eCW1 ([facility]) Outpatient Attender: [facility] 07/16/2019 08:39:01 AM [facility] Outpatient Attender: [facility] 07/14/2019 02:43:00 PM [facility] Outpatient Attender: [facility] 06/23/2019 03:58:01 PM [facility] Outpatient Attender: [facility] 06/23/2019 03:57:00 PM [facility] Outpatient Attender: [facility] 06/23/2019 11:14:01 AM [facility] Outpatient Attender: [facility] 06/23/2019 10:29:01 AM [facility] Outpatient Attender: [facility] 06/23/2019 10:28:00 AM [facility] Outpatient Attender: [facility] 06/23/2019 10:20:01 AM [facility] Outpatient Att[facility]: [facility] 06/23/2019 08:13: 00 AM [facility] Outpatient Attender: [facility] 06/23/2019 08:10: 01 AM [facility] Immunizations Vaccine Date Status Description Data Source(s) Depo-Provera 150mg/1mL (Medroxy-Progestrone Acetate) 09:39:00 AM EDT completed eCW1 ([facility]) Depo-Provera 150mg/1mL (Medroxy-Progestrone Acetate) 09:39:00 AM EDT completed eCW1 ([facility]) Depo-Provera 150mg/1mL (Medroxy-Progestrone Acetate) 09:39:00 AM EDT completed eCW1 ([facility]) Depo-Provera 150mg/1mL (Medroxy-Progestrone Acetate) 09:39:00 AM EDT completed eCW1 ([facility]) Depo-Provera 150mg/1mL (Medroxy-Progestrone Acetate) 09:39:00 AM EDT completed eCW1 ([facility]) Depo-Provera 150mg/1mL (Medroxy-Progestrone Acetate) 09:38:00 AM EDT completed eCW1 ([facility]) Depo-Provera 150mg/1mL (Medroxy-Progestrone Acetate) 09:38:00 AM EDT completed eCW1 ([facility]) Depo-Provera 150mg/1mL (Medroxy-Progestrone Acetate) 09:38:00 AM EDT completed eCW1 ([facility]) Depo-Provera 150mg/1mL (Medroxy-Progestrone Acetate) 09:38:00 AM EDT completed eCW1 ([facility]) Depo-Provera 150mg/1mL (Medroxy-Progestrone Acetate) 09:38:00 AM EDT completed eCW1 ([facility]) Depo-Provera 150mg/1mL (Medroxy-Progestrone Acetate) 09:38:00 AM EDT completed eCW1 ([facility]) Depo-Provera 150mg/1mL (Medroxy-Progestrone Acetate) 11:04:00 AM EST completed eCW1 ([facility]) Depo-Provera 150mg/1mL (Medroxy-Progestrone Acetate) 11:04:00 AM EST completed eCW1 ([facility]) Depo-Provera 150mg/1mL (Medroxy-Progestrone Acetate) 11:04:00 AM EST completed eCW1 ([facility]) Depo-Provera 150mg/1mL (Medroxy-Progestrone Acetate) 11:04:00 AM EST completed eCW1 ([facility]) Depo-Provera 150mg/1mL (Medroxy-Progestrone Acetate) 11:04:00 AM EST completed eCW1 ([facility]) Depo-Provera 150mg/1mL (Medroxy-Progestrone Acetate) 11:04:00 AM EST completed eCW1 ([facility]) Medications Medication Brand Name Start Date Product Form Dose Route Admi nistrative Instructions Pharmacy Instructions Status Indications Reaction Description Data Source(s) Omeprazole 40 MG Delayed Release Oral Capsule Omeprazole 40 MG 07/04/2020 12:00:00 AM EST active Omeprazo le 40 MG eCW1 ([facility]) Cholecalciferol 2000 UNT Oral Tablet Vitamin D 50 MCG (1999) Vitamin D 50 MCG (1999 [place]) 11/01/2019 12:00:00 AM EDT active 1 tablet eCW1 ([facility]) ferrous gluconate 324 MG Oral Tablet Ferrous Gluconate 324 (38 Fe) MG Ferrous Gluconate 324 (38 Fe) MG 11/01/2019 12:00:00 AM EDT active 1 tablet with water or juice between meals eCW1 ([facility]) ferrous gluconate 324 MG Oral Tablet Ferrous Gluconate 324 (38 Fe) MG Ferrous Gluconate 324 (38 Fe) MG 11/01/2019 12:00:00 AM EDT active Ferrous Gluconate 324 (38 Fe) MG eCW1 ([facility]) Cholecalciferol 2000 UNT Oral Tablet Vitamin D 50 MCG (1999 UT) Vitamin D 50 MCG (1999) 11/01/2019 12:00:00 AM EDT 1.0 {tablet} ac tive Vitamin D 50 MCG (1999 UT) eCW1 ([facility]) Insurance Providers Payer name Policy type / Coverage type Policy ID Covered alliance party ID Covered alliance party's relationship to cardenas Policy Cardenas Plan Information [employer] COMMUNITY PLAN MCDHMO [id number] SP [id number] [facility](MCAID) O [id number] S [id number] Managed Care [facility] Community Plan P UNAVAILABLE S UNAVAILABLE Medicaid S [id number] S [id number] Self Pay P [id number] O [id number] [employer]HC COMMUNITY PLAN MCDHMO [id number] SP [id number] UNHC COMMUNITY PLAN MCDHMO [id number] SP [id number] [facility] COMMUNITY PLAN MCDHMO [id number] SP [id number] [facility] (HMO) [id number] Self [id number] [facility] COMMUNITY PLAN MCDHMO [id number] SP [id number] [facility] [employer] (HMO) [id number] Self [id number] [facility](MCAID) O [id number] S [id number] [employer] COMMUNITY PLAN MCDHMO [id number] SP [id number] [facility] COMMUNITY PLAN MCDHMO [id number] SP [id number] [facility] (HMO) [id number] Self [id number] UN COMMUNITY PLAN MCDHMO [id number] SP [id number] [place] PPO 302/307 [id number] SP [id number] PMA MANAGEMENT [facility] [id number] SP [id number] Medicaid Dental S [id number] S [id number] Managed Care [facility] O [id number] S [id number] PMA MANAGEMENT [facility] [id number] SP [id number] BCBS [place]ATN 306/806 [id number] SP [id number] EXCELLUS BCBS P [id number] S [id number] O BLUE [id number] SP [id number] EXCELLUS BCBS P [id number] [employer] BCBS P UNAVAILABLE S UNAV AILABLE MEDICAID P [id number] S [id number] [employer] COMP [id number] SP [id number] Problems, Conditions, and Diagnoses Code Display Name Description Problem Type Effective Dates Data Source(s) K80.20 [id number] Calculus of gallblad andi without cholecystitis without obstruction Problem 06/02/2020 12:00:00 AM EST eCW1 ([facility]) G43.009 [id number] Migraine without aur a and without status migrainosus, not intractable Problem 10/26/2019 12:00:00 AM EDT eCW1 ([facility]) Z00.00 [id number] Annual physical exam Problem 10/26/2019 12:0 0:00 AM EDT eCW1 ([facility]) Z00.00 [id number] Annual physical exam Problem 10/26/2019 12:0 0:00 AM EDT eCW1 ([facility]) G43.009 [id number] Migraine without aur a and without status migrainosus, not intractable Problem 10/26/2019 12:00:00 AM EDT eCW1 ([facility]) 520.6 [place] teeth impaction [place] teeth impaction 06/23/2019 03:56:[address] [facility] Surgeries/Procedures Procedure Description Date Indications Data Source(s) Injection, medroxyprogesterone acetate for contraceptive use , 150 mg 01/06/2020 12:00:00 AM EDT eCW1 ([facility]) Injection, medroxyprogesterone acetate, 1 mg 0 12:00:00 AM EDT eCW1 ([facility]) THER/PROPH/DIAG INJ, SC/IM 10/15/2019 12:00:00 AM EDT eCW1 ([facility]) Results ID Date Data Source [id number] 07/13/2020 02:00:00 PM EST [facility] Name Value Range Interpretation Code Description Data Inessa rce(s) Supporting Document(s) SARS coronavirus 2 RNA Not Detected [facility] [place] This lab was ordered by [facility] and reported by [facility]. ID Date Data Source [id number] 04/11/2020 09:03:[address] [facility] Current Problems: [place] teeth impaction (ICD-520.6) (HXY43-J66.1)Current Medications: * MULTI VIT Current Allergies: * CASHEWNUT (Critical) Dental Chart: Procedures:Type - CDT Code - Description B - (D2392) Resin-based composite, 2 surfaces, posterior on Tooth # 2 on Tooth Surface OB (Performed by Dave Ge DDS) B - (D2391) Resin-based composite - one surface, posterior on Tooth # 3 on Tooth Surface O (Performed by Dave Ge DDS) Treatments:Type - CDT Code - Description T - (D2391) Resin-based composite - one surface, posterior on Tooth # 13 on Tooth Surface O (Performed by Dave Ge DDS) Chart Alert:Dental Alert: Prophy once per 6 month periodchild through age 12adult 13+next avail 04/19/2013Exam once per 6 month periodnext avail 04/19/2013Fl2 once per 6 month periodnext avail 04/19/2013under age 20Bwx 4 bitewings every 6 monthsnext avail 04/19/2013Panorex every 3 yearsnext avail After perio maintenance is startedall prophy's need to be billed as [id number] 2xye arlyDebridement and scaling okProbing NOT coveredSealants every 5 yearsfrom ages 5 to 15 Chart Notes:mjain (Apr 11 2020 10:14AM): Rmhx(-) per ptCC: none. Temperature: 97.0 passed COVID questionaireOperative: #2-OB #3-O decay removed with highspeed bur, acid etching gel applied/rinsed/dried, self etching Futurabond M+ (Voco) placed and light-cured, A2 packable Grandioso (Voco) composite placed and light-cured. Bite occlusion checked, adjusted, and polished.Anesthesia: 20% Benzocaine topical, 1 carp 4% Septocaine w/ 1:100,000 epi (upper right infiltration) Additional PPE were used due to COVID-19. This included a minimum of a N95, a surgical mask, a hair covering, a face shield, proctective eyewear, and a gown.No complications. POI. Assisted by BIGG. Pt was cooperative.NV: restorationDave Ge DDS by jun (04/11/2020 10:14 AM): Tooth Notes and Watches:- Tooth 6 Watch: distal Daphne Abernathy by ale (10/13/2012 10:13 AM): Assessment & Plan Medications:MULTI VITAllergies:* CASHEWNUT (Critical) Name Value Range Interpretation Code Description Data Inessa rce(s) Supporting Document(s) ID Date Data Source [id number] 03/07/2020 11:09:[address] [facility] Current Problems: [place] teeth impaction (ICD-520.6) (IZO80-N61.1)Current Medications: * MULTI VIT Current Allergies: * CASHEWNUT (Critical) Dental Chart: Procedures:Type - CDT Code - Description B - (D2391) Resin-based composite - one surface, posterior on Tooth # 18 on Tooth Surface O (Performed by Dave Ge DDS) Chart Alert:Dental Alert: Prophy once per 6 month periodchild through age 12adult 13+next avail 04/19/2013Exam once per 6 month periodnext avail 04/19/2013Fl2 once per 6 month periodnext avail 04/19/2013under age 21Bwx 4 bitewings every 6 monthsnext avail 04/19/2013Panorex every 3 yearsnext avail After perio maintenance is startedall prophy's need to be billed as [id number] 2xyearlyDebridement and scaling okProbing NOT coveredSealants every 5 yearsfrom ages 5 to 15 Chart Notes:jun (Mar 07 2020 12:31PM): Rmhx (- ) per pt no changesCC: none. Temperature: 97.0 passed covid questionsOperative: #18 O - decay removed with highspeed bur, acid etching gel applied/rinsed/dried, self etching Futurabond M+ (Voco) placed and light-cured, A2 packable Grandioso (Voco) composite placed and light-cured. Bite occlusion checked, adjusted, and polished.Anesthesia: 20% Benzocaine topical, 1 carp 4% Septocaine w/ 1:100,000 epi (LL Infil.)Additional PPE were used due to COVID-19. This included a minimum of a N95, a surgical mask, a hair covering, a face shield, proctective eyewear, and a gown.No complications. POI. Assisted by . Pt was cooperative.NV: Dave Lam DDS by jun (03/07/2020 12:31 PM): Tooth Notes and Watches:- Tooth 6 Watch: Daphne Woodson by ale (10/13/2012 10:13 AM): Assessment & Plan Medications:MULTI VITAllergies:* CASHEWNUT (Critical) Name Value Range Interpretation Code Description Data Inessa rce(s) Supporting Document(s) ID Date Data Source [id number] 01/27/2020 11:02:[address] [facility] Vital SignsTemperature: 97.2FB lood Pressure: 120/74 Patient History Medical History:None. Surgical History: sectionFamily History:Social/Personal History: Current Problems: [place] teeth impaction (ICD- 520.6) (MDB08-L63.1)Problem list reviewed during this update.Current Medications: * MULTI VIT Medication list reviewed during this update.Current Allergies: * CASHEWNUT (Critical)Allergy list reviewed during this update.Past Medical History:(reviewed - no changes required) None. Dental Chart: Procedures:Type - CDT Code - Description B - (D0120) Periodic oral evaluation - established patient (Performed by Dave Ge DDS) B - (D1110) Prophylaxis, adult (Performed by Mc DOBSONZabrina) Treatments:Type - CDT Code - Description T - (D2391) Resin-based composite - one surface, posterior on Tooth # 2 on Tooth Surface B (Performed by Zabrina Bentley RDH) T - (D2391) Resin-based composite - one surface, posterior on Tooth # 18 on Tooth Surface O (Performed by Zabrina Bentley RDH) T - (D2391) Resin-based composite - one surface, posterior on Tooth # 3 on Tooth Surface O (Performed by Mc DOBSONZabrina) T - (D2331) Resin, 2 surfaces, anterior on Tooth # 10 on Tooth Surface MF (Performed by Mc DOBSONZabrina) Existing:Type - CDT Code - Description[E] Decay On #10 Surface MF, #18 Surface O, #2 Surface B, #3 Surface O Chart Alert:Dental Alert: Prophy once per 6 month periodchild through age 12adult 13+next avail 04/19/2013Exam once per 6 month periodnext avail 04/19/2013Fl2 once per 6 month periodnext avail 04/19/2013under age 21Bwx 4 bit ewings every 6 monthsnext avail 04/19/2013Panorex every 3 yearsnext avail After perio maintenance is startedall prophy's need to be billed as [id number] 2xyearlyDebridement and scaling okProbing NOT coveredSealants every 5 yearsfrom ages 5 to 15 Chart Notes:pearl (Jan 27 2020 11:48AM): Additional PPE requirements due to COVID-19 in the dental setting, N95, surgical mask, hair covering, gown. RMH with patient. No problems or concerns today. Pt. has tongue ring, discussed dental concerns and encouraged pt. to take it out. Pt. wants to wait on wisdom teeth Oral cancer screening-no significant findings. T empature:97.2Adult prophy- handscaled and used cavitron in all quads-pt. tolerated well, georgian- mint prophy paste, flossOH-Patient brushes twice/day and is not flossing regularlyLT gen marginal biofilm and moderate supra/sub/marginal/introproximal calculus on LA. Tissues are red, inflammed, and bleeding in sextant 5OHI- Advise to brush 2x a day and floss everyday.Patient is cooperative. NV- 6 month recall/fillingsWZabrina patel RDH by pearl (01/27/2020 11:28 AM): ; jun (Jan 27 2020 4:02PM): [facility](-). CC: none. Exam: caries detected. OCS: WNL, IO/ EO completed, No significant hard findings upon clinical exam.Additional PPE requirements due to COVID-19 in the dental setting, N95, surgical mask, hair covering, gown and shieldPt was cooperative. OHI given Referral: N/A NV:restorationZabrina Bentley RDH by ujn (01/27/2020 4:02 PM): Tooth Notes and Watches:- Tooth 6 Watch: distal watchDaphne Nixon by ale (10/13/2012 10:13 AM): Assessment & Plan Medications:MULTI VITAllergies:* CASHEW NUT (Critical) Name Value Range Interpretation Code Description Data Inessa rce(s) Supporting Document(s) ID Date Data Source VITAMIN D 25-HYDROXY 10/26/2019 12:00:00 AM EDT eCW1 ([facility]) Name Value Range Interpretation Code Description Data Inessa rce(s) Supporting Document(s) 24.9 30.0-100.0 TOTAL 25(OH) VITAMIN D eC W1 ([facility]) ID Date Data Source TOTAL IRON BINDING CAPACIT 10/26/2019 12:00:00 AM EDT eCW1 ( [facility]) Name Value Range Interpretation Code Description Data Inessa rce(s) Supporting Document(s) 43 50-170 IRON (FE) eCW1 ([facility]) IRON (FE) 11.8 13.2-45.0 PERCENT SATURATION eCW1 ([facility]) PERCENT SATURATION 363 250-450 TOTAL IRON BINDING CAPACI TY eCW1 ([facility]) TOTAL IRON BINDING CAPACITY ID Date Data Source FERRITIN 10/26/2019 12:00:00 AM EDT eCW1 ([facility]) Name Value Range Interpretation Code Description Data Inessa rce(s) Supporting Document(s) 13 8-252 FERRITIN eCW1 ([facility]) FERRITIN ID Date Data Source CBC - Complete Blood Count 10/26/2019 12:00:00 AM EDT eCW1 ( [facility]) Name Value Range Interpretation Code Description Data Inessa rce(s) Supporting Document(s) 7.6 4.0-10.0 WHITE BLOOD COUNT eCW1 ([facility]) 5.04 4.00-5.40 RED BLOOD COUNT eCW1 ([facility]) 43.9 36.0-47.0 HEMATOCRIT eCW1 ([facility]) 14.0 12.0-15.5 HEMOGLOBIN eCW1 ([facility]) 87.1 80.0-96.0 MEAN CORPUSCULAR VOLUME e CW1 ([facility]) 27.8 27.0-33.0 MEAN CORPUSCULAR HEMOGLOB IN eCW1 ([facility]) 13.7 11.5-14.5 RED CELL DISTRIBUTION WID TH eCW1 ([facility]) 31.9 32.0-36.5 MEAN CORPUSCULAR HGB CONC eCW1 ([facility]) 318 150-450 PLATELET COUNT, AUTOMATED eCW1 ([facility]) ID Date Data Source [id number] 07/16/2019 07:46:11 AM [facility] Current Problems: [place] teeth impaction (ICD-520.6) (ION18-O59.1)Current Medications: * MULTI VIT Current Allergies: * CASHEWNUT (Critical) Dental Chart: Procedures:Type - CDT Code - Description B - (D0330) Panoramic film (Performed by Dave Ge DDS) B - (D2392) Resin-based composite, 2 surfaces, posterior on Tooth # 15 on Tooth Surface OB (Performed by Dave Ge DDS) B - (D2391) Resin-based composite - one surface, posterior on Tooth # 19 on Tooth Surface B (Performed by Dave Ge DDS) B - (D2391) Resin- based composite - one surface, posterior on Tooth # 30 on Tooth Surface B (Performed by Dave Ge DDS) Chart Alert:Dental Alert: Prophy once per 6 month periodchild through age 12adult 13+next avail 04/19/2013Exam once per 6 month periodnext avail 04/19/2013Fl2 once per 6 month periodnext avail 04/19/2013under age 21Bwx 4 bitewings every 6 monthsnext avail 04/19/2013Panorex every 3 yearsnext avail After perio maintenance is startedall prophy's need to be billed as D4910 2xyearlyDebridement and scaling okProbing NOT coveredSealants every 5 yearsfrom ages 5 to 15 Chart Notes:jun (Jul 16 2019 8:38AM): Rmhx(- ) per ptCC: none. Operative: #15-OB #30-B #19-B decay removed with highspeed bur, self etching Futurabond M+ (Voco) placed and light-cured, A2 flowable Grandioso (Voco) composite placed and light-cured. Bite occlusion checked, adjusted, and polished.Anesthesia: 20% Benzocaine topical, 0.5 carp 4% Septocaine w/ 1:100,000 epi (upper left infiltration)Pano taken for OS wisdom teeth No complications. POI. Assisted by BIGG . Pt was cooperative.NV: Dave Appiah DDS by jun (07/16/2019 8:38 AM): Tooth Notes and Watches:- Tooth 6 Watch: Daphne Woodson by ale (10/13/2012 10:13 AM): Assessment & Plan Medications:MULTI VITAllergies:* JUAN (Critical) Name Value Range Interpretation Code Description Data Inessa rce(s) Supporting Document(s) ID Date Data Source [id number] 06/23/2019 09:07:58 AM [facility] Vital SignsBlood Pressure: 117/78 Patient History Medical History:None. Surgical History: sectionSocial/Personal History: Smoking Status: never smokerChief Complaint: Routine CleaningVisit Type: ExamCurrent Problems: [place] teeth impaction (ICD-520.6) (MAR43-B59.1)No known problems.Current Medications: * MULTI VIT Medication list reviewed during this update.Current Allergies: * CASHEWNUT (Critical)Allergy list reviewed during this update.Past Medical History:(reviewed - no changes required) None. Dental Chart: Procedures:Type - CDT Code - Description B - (D1110) Prophylaxis, adult (Performed by Radha Andrade RDH) B - (D0150) Comprehensive oral evaluation - new or established patient (Performed by Radha Andrade RDH) B - (D0274) Bitewings, 4 radiographic images (Performed by Radha Andrade RDH) Treatments:Type - CDT Code - Description T - (D2391) Resin-based composite - one surface, posterior on Tooth # 19 on Tooth Surface B (Performed by Radha Andrade RDH) T - (D7140) Extraction, erupted tooth or exposed root (elevation and/or forceps removal) on Tooth # 17 (Performed by Radha Andrade RDH) T - (D7140) Extraction, erupted tooth or exposed root (elevation and/or forceps removal) on Tooth # 32 (Performed by Radha Andrade RDH) T - (D2392) Resin- based composite, 2 surfaces, posterior on Tooth # 15 on Tooth Surface OB (Performed by Radha Andrade RDH) T - (D7140) Extraction, erupted tooth or exposed root (elevation and/or forceps removal) on Tooth # 16 (Performed by Radha Andrade RDH) T - (D7140) Extraction, erupted tooth or exposed root (elevation and/or forceps removal) on Tooth # 1 (Performed by Radha Andrade RDH) T - (D2391) Resin-based composite - one surface, posterior on Tooth # 30 on Tooth Surface B (Performed by Radha Andrade RDH) Chart Alert:Dental Alert: Prophy once per 6 month periodchild through age 12adult 13+next avail 04/19/2013Exam once per 6 month periodnext avail 04/19/2013Fl2 once per 6 month periodnext avail 04/19/2013under age 20Bwx 4 bitewings every 6 monthsnext avail 04/19/2013Panorex every 3 yearsnext avail After perio maintenance is startedall prophy's need to be billed as D4910 2 xyearlyDebridement and scaling okProbing NOT coveredSealants every 5 yearsfrom ages 5 to 15 Chart Notes:oneil (Jun 23 2019 3:08PM): CC: Cleaning -- pt has not been here since 2012RMH: New pt; unremarkable historyAllergies: Cashew nutSmoking Status: NeverBP: Taken todayEO/IO: Oral cancer screening performed - no abnormalites noted; normal mucosa with no white or raised patches. No lymphadenopathy. No poping or clicking of the TMJ. Pt has fair oral health. Several areas of decay per doc. [place] teeth need to be ext but pano was not working properly. Referral will be put in after pano is taken. Pt has heavy, dark calc, light plaque, and moderate bleeding. Behavior: Very compliantTX: Perio charting, 4 BWX, Adult prophy, and exam by Dr. Hercules: Spoke to pt about brushing and flossing. Pt stated flossing was something her and her would both be working on together. NV: Restorative and [place]. 6MRCFowRadha moncada RDH by oneil (06/23/2019 3:08 PM): ; jun (Jun 23 2019 3:54PM): [facility](-). ALLERGY- Cashew. CC: none. Reviewed Xrays. Exam:caries detected. OCS: WNL, IO/ EO completed, No significant hard findings upon clinical exam Pt was cooperative.OHI givenReferral: OMFSNV:Radha Lopez RDH by jun (06/23/2019 3:54 PM): Tooth Notes and Watches:- Tooth 6 Watch: distal watchBakerDaphne by ale (10/13/2012 10:13 AM): Assessment & Plan Problems:Added: [place] teeth impaction (ICD-520.6) (ODP68-S57.1)Medications:MULTI VITMedication Changes:Added: * MULTI VITAllergies:* CASHEWNUT (Critical)Orders:Oral Surgery Referral [CPT-72592] Name Value Range Interpretation Code Description Data Inessa rce(s) Supporting Document(s) Procedure Social History Code Duration Value Status Description Data Source(s ) Smoking 06/02/2020 12:00:00 AM EST Never Smoker completed Never S moker eCW1 ([facility]) Smoking 06/02/2020 12:00:00 AM EST Never Smoker completed Never S moker eCW1 ([facility]) Smoking 06/02/2020 12:00:00 AM EST Never Smoker completed Never S moker eCW1 ([facility]) Smoking 10/26/2019 12:00:00 AM EDT Never Smoker completed Never S moker eCW1 ([facility]) Smoking 10/26/2019 12:00:00 AM EDT Never Smoker completed Never S moker eCW1 ([facility]) Vital Signs ID Date Data Source UNK Name Value Range Interpretation Code Description Data Source(s) Body surface area Derived from formula 1.87 m2 1.87 m2 [facility] Body weight 85.730 kg 85.730 kg [facility] ([facility]) [place] body weight 110 [lb_av] 110 [lb_av] MEDEN T ([facility]) Body mass index (BMI) [Ratio] 34.6 kg/m2 34.6 k g/m2 [facility] ([facility]) Body weight 189.00 [lb_av] 189.00 [lb_av] MEDEN T ([facility]) Body height 62 [in_i] 62 [in_i] [facility] ([facility]) 5'2" Diastolic blood pressure 72 mm[Hg] 72 mm[Hg] [facility] ([facility]) Systolic blood pressure 125 mm[Hg] 125 mm[Hg] M EDENT ([facility]) Diastolic blood pressure 78 mm[Hg] 78 mm[Hg] eCW1 ([facility]) Systolic blood pressure 118 mm[Hg] 118 mm[Hg] e CW1 ([facility]) Body temperature 96.5 [degF] 96.5 [degF] eCW1 ( [facility]) Respiratory rate 18 /min 18 /min eCW1 ([facility]) Heart rate 102 /min 102 /min W1 ([facility]) Body mass index (BMI) [Ratio] 32.31 kg/m2 32.31 kg/m2 [facility] ([facility]) Body height 63 [in_us] 63 [in_us] eCW1 ([facility]) Body weight Measured 182.4 [lb_av] 182.4 [lb_av ] eCW1 ([facility]) Diastolic blood pressure 86 mm[Hg] 86 mm[Hg] eCW1 ([facility]) Systolic blood pressure 118 mm[Hg] 118 mm[Hg] e CW1 ([facility]) Body mass index (BMI) [Ratio] 32.06 kg/m2 32.06 kg/m2 [facility] ([facility]) Body height 63 [in_us] 63 [in_us] eCW1 ([facility]) Body weight Measured 181 [lb_av] 181 [lb_av] eC W1 ([facility]) Body mass index (BMI) [Ratio] 33.82 kg/m2 33.82 kg/m2 eCW1 ([facility]) Body height 61 [in_us] 61 [in_us] eCW1 ([facility]) Body weight Measured 179 [lb_av] 179 [lb_av] eC W1 ([facility]) Patient Treatment Plan of Care Planned Activity Planned Date Details Description Data Source (s) Omeprazole 40 MG Delayed Release Oral Capsule 07/04/2020 12:00:00 A M EST eCW1 ([facility]) Cholecalciferol 2000 UNT Oral Tablet 11/01/2019 12:00:00 AM EDT eCW1 ([facility]) ferrous gluconate 324 MG Oral Tablet 11/01/2019 12:00:00 AM EDT eCW1 ([facility]) ferrous gluconate 324 MG Oral Tablet 11/01/2019 12:00:00 AM EDT eCW1 ([facility]) Cholecalciferol 2000 UNT Oral Tablet 11/01/2019 12:00:00 AM EDT eCW1 ([facility])
[2020-07-18] MEDS ORDERED: BUPIVACAINE HCL 0.25% 30ML VIAL As Ordered ONE (09:11)
[2020-07-18] MEDS ORDERED: ACETAMINOPHEN 1000MG 100ML IV BTL (OFIRMEV) (J0131 PER 10MG) As Ordered ONE (09:54)
[2020-07-18] MEDS ORDERED: SUGAMMADEX SODIUM 500 MG/5 ML VIAL (BRIDION) As Ordered ONE (09:58)
[2020-07-18] MEDS ORDERED: ROCURONIUM BROMIDE 50 MG/5 ML VIAL As Ordered ONE (09:58)
[2020-07-18] MEDS ORDERED: oxyCODONE 5MG TAB PO PRN (11:45)
[2020-07-18] MEDS ORDERED: HYDR-3715 PO (11:51)
[2020-07-18] MEDS ORDERED: MORPHINE 2 MG/ML 1ML VIAL (J2270) IV PRN (12:00)
[2020-07-18] MEDS ORDERED: IBUPROFEN 600MG TAB PO PRN (12:00)
[2020-07-18] MEDS ORDERED: fentaNYL 100 MCG/2 ML INJECTION (J3010) IV PRN (12:00)
[2020-07-18] MEDS ORDERED: LR 1,000 ML IV SCH (12:00)
[2020-07-18] MEDS ORDERED: ACETAMINOPHEN TAB 650MG DOSE (2X325MG) PO PRN (12:00)
[2020-07-18] MEDS ORDERED: NORCO, ANEXSIA 5/325MG TABLET (HYDROcodone/ACETAMINOPHEN) PO PRN (12:00)
[2020-07-18] MEDS ORDERED: ONDANSETRON 4MG/2ML VIAL IV PRN (12:00)
--- NOTE | 2020-07-18 12:59 | RO ---
OPERATIVE NOTE DATE OF OPERATION: 07/18/2020 PREOPERATIVE DIAGNOSIS: Symptomatic gallstones. POSTOPERATIVE DIAGNOSIS: Symptomatic gallstones. PROCEDURE PERFORMED: Laparoscopic cholecystectomy. SURGEON: Hernan Gonzalez MD COMPOUND SPECIALIST: ANESTHESIA: General. INDICATIONS FOR THE PROCEDURE: The patient is a 25-year-old woman who has had episodic upper abdominal pain consistent with biliary colic. Ultrasound confirmed cholelithiasis and she is now for laparoscopic cholecystectomy. DESCRIPTION OF PROCEDURE: The patient was brought to the operating room and placed on the table in supine position. She was placed under general endotracheal anesthesia. The patient's abdomen was prepped and draped in sterile fashion. 0.25% Marcaine was infiltrated at each of the trocar sites as needed. A short transverse left upper quadrant incision was made and the Veress needle was inserted. After a positive hanging drop test the abdomen was inflated with CO2 gas. 5 mm port was placed over 5 mm scope and advanced through the abdominal wall without difficulty. Initial examination showed no evidence of Veress needle or trocar injury. An 11 mm port was placed just above the umbilicus and two 5 mm ports were placed in the right upper quadrant. The patient was rolled slightly to the left and moved into reverse Trendelenburg position. Graspers were inserted. The gallbladder was identified and was not inflamed. There were a few adhesions to the surrounding omentum. The gallbladder was grasped and elevated. The adhesions to the omentum were divided with Hook cautery. The peritoneum at the gallbladder neck was opened with Hook cautery and dissection proceeded through the pericholecystic tissues to identify the cystic duct and cholecystic artery. Both structures were clearly identified and dissected free circumferentially. Both structures were then doubly clipped with hemoclips and divided. The gallbladder was then dissected free from the gallbladder bed using cautery dissection. The gallbladder was not perforated in the course of dissection. The gallbladder was placed in an Endopouch. The subhepatic space was irrigated and inspected and there was no evidence of bleeding or bile leak. The patient was returned to a flat position. The gallbladder was recovered through the supraumbilical site without difficulty. The trocar was then reinserted and final inspection of the subhepatic space again confirmed no evidence of bleeding or bile leak. The abdomen was deflated and trocars were all removed. The fascia at the supraumbilical site was closed with interrupted simple sutures of 2-0 Vicryl. The skin incisions were all closed with buried 4-0 Vicryl and Steri-Strips. Light dressings were applied. The patient tolerated the procedure well without apparent complications. She was awakened in the operating room, extubated and moved to the recovery room in stable condition.
[2020-07-18 13:30] VITALS: BP 124/70
== END 2020-07-18 13:46 | disposition home or self-care (01) ==
LOC: M SDC 08:27
PROVIDERS: ATTEND Surgery
DX: K80.10 Calculus of gallbladder with chronic cholecystitis without obstruction (principal); G43.909 Migraine, unspecified, not intractable, without status migrainosus; K21.9 Gastro-esophageal reflux disease without esophagitis; F32.9 Major depressive disorder, single episode, unspecified; Z79.899 Other long term (current) drug therapy; Z91.010 Allergy to peanuts
CPT/HCPCS: 47562; 81025; 88304; J0131; J1100; J1885; J2250; J2405; J3010

== ENCOUNTER → 2021-03-05 | Outpatient (REF) | payer OTHER ==
[~2021-03-05] MED LIST changes: +HYDR-3715 PO; -KETOROLAC 60MG 2ML VIAL As Ordered ONE; -LIDOCAINE 2% 100MG/5ML SDV (FOR ANES.) As Ordered ONE; -LR 1,000 ML IV ONE; -MIDAZOLAM INJ 2MG/2ML VIAL (J2250 PER 1MG) As Ordered ONE; +OMEP40CA4 PO; -OMEP40CA97 PO; -ONDANSETRON 4MG/2ML VIAL As Ordered ONE; -ROCURONIUM BROMIDE 50 MG/5 ML VIAL As Ordered ONE; -dexameTHASONE 4 MG/ML 1ML VIAL (J1100 PER 1MG) As Ordered ONE; -fentaNYL 250 MCG/5 ML INJECTION (J3010) As Ordered ONE; -propofoL 200 MG/20 ML VIAL As Ordered ONE
[2021-03-05 12:03] LABS: BASO % 0.4 % (0.0-1.0); EOS # 0.1 10^3/uL (0.0-0.5); EOS % 1.6 % (0.0-3.0); HEMATOCRIT 42.6 % (36.0-47.0); HEMOGLOBIN 13.9 g/dl (12.0-15.5); LYMPH # 1.8 10^3/uL (1.5-5.0); LYMPH % 24.9 % (24.0-44.0); MEAN CORPUSCULAR HEMOGLOBIN 29.6 pg (27.0-33.0); MEAN CORPUSCULAR HGB CONC 32.6 g/dl (32.0-36.5); MEAN CORPUSCULAR VOLUME 90.6 fl (80.0-96.0); MONO # 0.4 10^3/uL (0.0-0.8); NEUTROPHILS # 4.9 10^3/uL (1.5-8.5); NEUTROPHILS % 66.7 % (36.0-66.0); PLATELET COUNT, AUTOMATED 322 10^3/uL (150-450); WHITE BLOOD COUNT 7.4 10^3/uL (4.0-10.0)
[2021-03-05 12:42] LABS: PERCENT SATURATION 13.4 % (13.2-45.0); TOTAL 25(OH) VITAMIN D 52.2 NG/ML (30.0-100.0)
== END ==
LOC: M SFHCADAM 09:12
PROVIDERS: ATTEND Physician Assistant Medical
DX: D50.9 Iron deficiency anemia, unspecified (principal); E55.9 Vitamin D deficiency, unspecified

== ENCOUNTER → 2021-04-23 | Outpatient (CLI) | payer OTHER ==
[2021-04-23 15:51] LABS: BASO % 0.3 % (0.0-1.0); EOS # 0.1 10^3/uL (0.0-0.5); EOS % 0.7 % (0.0-3.0); HEMATOCRIT 39.1 % (36.0-47.0); HEMOGLOBIN 12.9 g/dl (12.0-15.5); LYMPH # 2.2 10^3/uL (1.5-5.0); MEAN CORPUSCULAR HEMOGLOBIN 29.5 pg (27.0-33.0); MEAN CORPUSCULAR VOLUME 89.5 fl (80.0-96.0); MONO # 0.6 10^3/uL (0.0-0.8); MONO % 5.7 % (2.0-8.0); NEUTROPHILS # 7.9 10^3/uL (1.5-8.5); NEUTROPHILS % 72.8 % (36.0-66.0); PLATELET COUNT, AUTOMATED 277 10^3/uL (150-450); RED BLOOD COUNT 4.37 10^6/uL (4.00-5.40); WHITE BLOOD COUNT 10.8 10^3/uL (4.0-10.0)
[2021-04-23 17:10] LABS: HEPATITIS C VIRUS ABY INDEX 0.1 INDEX (<0.8); HIV 1&2 SCREEN CENTAUR NEGATIVE (NEGATIVE)
[2021-04-23 17:31] LABS: GC DNA AMPLIFICATION NEGATIVE (NEGATIVE)
== END ==
LOC: M PLALAB 13:55
PROVIDERS: ATTEND Obstetrics & Gynecology
DX: Z34.90 Encounter for supervision of normal pregnancy, unspecified, unspecified trimester (principal); Z36.89 Encounter for other specified antenatal screening

== ENCOUNTER → 2021-05-24 | Outpatient (CLI) | payer OTHER | LOC: M PLALAB 10:42 | PROVIDERS: ATTEND Obstetrics & Gynecology | DX: Z34.81 Encounter for supervision of other normal pregnancy, first trimester (principal) ==

== ENCOUNTER → 2021-07-17 | Outpatient (CLI) | payer OTHER | LOC: M WHC 06:55 | PROVIDERS: ATTEND Obstetrics & Gynecology | DX: Z36.89 Encounter for other specified antenatal screening (principal); Z3A.20 20 weeks gestation of pregnancy; O32.2XX0 Maternal care for transverse and oblique lie, not applicable or unspecified ==

== ENCOUNTER → 2021-08-01 | Outpatient (CLI) | payer OTHER | LOC: M WHC 07:06 | PROVIDERS: ATTEND Obstetrics & Gynecology | DX: Z36.2 Encounter for other antenatal screening follow-up (principal); Z3A.22 22 weeks gestation of pregnancy ==

== ENCOUNTER → 2021-08-20 | Outpatient (CLI) | payer OTHER ==
[2021-08-20 13:27] LABS: HEMATOCRIT 34.4 % (36.0-47.0); HEMOGLOBIN 11.2 g/dl (12.0-15.5); MEAN CORPUSCULAR HEMOGLOBIN 30.1 pg (27.0-33.0); MEAN CORPUSCULAR HGB CONC 32.6 g/dl (32.0-36.5); MEAN CORPUSCULAR VOLUME 92.5 fl (80.0-96.0); PLATELET COUNT, AUTOMATED 222 10^3/uL (150-450); RED BLOOD COUNT 3.72 10^6/uL (4.00-5.40); WHITE BLOOD COUNT 9.6 10^3/uL (4.0-10.0)
[2021-08-20 14:42] LABS: GC DNA AMPLIFICATION NEGATIVE (NEGATIVE)
== END ==
LOC: M PLALAB 10:53
PROVIDERS: ATTEND Specialist
DX: Z34.82 Encounter for supervision of other normal pregnancy, second trimester (principal)

== ENCOUNTER → 2021-11-05 | Outpatient (REF) | payer OTHER | LOC: M SFHCWAGY 18:10 | PROVIDERS: ATTEND Specialist | DX: Z34.83 Encounter for supervision of other normal pregnancy, third trimester (principal); Z36.85 Encounter for antenatal screening for Streptococcus B ==

== ENCOUNTER 2021-11-16 17:14 | Outpatient (CLI) | payer OTHER ==
[~2021-11-16] VITALS: Ht 160 cm; Wt 90.5 kg
[2021-11-16 17:36] VITALS: BP 134/87
== END 2021-11-16 18:13 | disposition home or self-care (01) ==
LOC: M LDO 17:14
PROVIDERS: ATTEND Advanced Practice Midwife
DX: O60.03 Preterm labor without delivery, third trimester (principal); R10.2 Pelvic and perineal pain; O34.219 Maternal care for unspecified type scar from previous cesarean delivery; Z3A.37 37 weeks gestation of pregnancy

== ENCOUNTER → 2022-02-25 | Outpatient (CLI) | payer OTHER ==
[~2022-02-25] MED LIST changes: +ACET-683 PO; +IBUP-1022 PO; +OMEP40CA5 PO; +VITA200032 PO
== END ==
LOC: M LABSMTC 09:28
PROVIDERS: ATTEND Anesthesiology
DX: Z01.818 Encounter for other preprocedural examination (principal); Z11.52 Encounter for screening for COVID-19

== ENCOUNTER 2022-03-01 11:02 | Day surgery (SDC) | payer OTHER ==
[~2022-03-01] VITALS: Ht 160 cm; Wt 78.5 kg
[~2022-03-01 11:02] MED LIST changes: +KETOROLAC 60MG 2ML VIAL As Ordered ONE; +LIDOCAINE 2% 100MG/5ML SDV (FOR ANES.) As Ordered ONE; +MIDAZOLAM INJ 2MG/2ML VIAL (J2250 PER 1MG) As Ordered ONE; +ONDANSETRON 4MG 2ML VIAL As Ordered ONE; +ROCURONIUM BROMIDE 50 MG/5 ML VIAL As Ordered ONE; +SUGAMMADEX SODIUM 500 MG/5 ML VIAL (BRIDION) As Ordered ONE; +dexameTHASONE 4 MG/ML 1ML VIAL (J1100 PER 1MG) As Ordered ONE; +fentaNYL 100 MCG/2 ML INJECTION As Ordered ONE; +propofoL 200 MG/20 ML VIAL As Ordered ONE
[2022-03-01] MEDS: BUPIVACAINE HCL 0.25% 10ML VIAL As Ordered ONE ×2 (11:44→12:39)
[2022-03-01 11:48] LABS: HEMATOCRIT 41.3 % (36.0-47.0); HEMOGLOBIN 13.4 g/dl (12.0-15.5); MEAN CORPUSCULAR HEMOGLOBIN 28.5 pg (27.0-33.0); MEAN CORPUSCULAR HGB CONC 32.4 g/dl (32.0-36.5); MEAN CORPUSCULAR VOLUME 87.9 fl (80.0-96.0); PLATELET COUNT, AUTOMATED 289 10^3/uL (150-450); WHITE BLOOD COUNT 6.5 10^3/uL (4.0-10.0)
[2022-03-01] MEDS ORDERED: HYDROmorphone HCL 2MG/ML 1ML VIAL As Ordered ONE (12:31)
[2022-03-01] MEDS ORDERED: fentaNYL 100 MCG/2 ML INJECTION IV PRN (12:55)
[2022-03-01] MEDS ORDERED: ONDANSETRON 4MG 2ML VIAL IV PRN (12:55)
[2022-03-01] MEDS ORDERED: oxyCODONE 5MG TAB PO PRN (12:55)
[2022-03-01] MEDS ORDERED: LR 1,000 ML IV SCH (12:55)
[2022-03-01] MEDS ORDERED: ACETAMINOPHEN 500 MG TAB PO PRN (13:25)
[2022-03-01] MEDS: HYDROMORPHONE HCL 0.5 MG/ 0.5 ML SYRINGE (J1170 PER 1) IV PRN ×2 (13:31→13:37)
[2022-03-01 14:30] VITALS: BP 112/60
== END 2022-03-01 14:40 | disposition home or self-care (01) ==
LOC: M SDC 11:02
PROVIDERS: ATTEND Obstetrics & Gynecology
DX: Z30.2 Encounter for sterilization (principal); G43.909 Migraine, unspecified, not intractable, without status migrainosus; K21.9 Gastro-esophageal reflux disease without esophagitis; D64.9 Anemia, unspecified; Z91.010 Allergy to peanuts; Z79.899 Other long term (current) drug therapy
CPT/HCPCS: 36415; 58661; 81025; 85027; 86850; 86870; 86900; 86901; 88302; J1100; J1170; J1885; J2250; J2405; J3010

== ENCOUNTER → 2022-08-02 | Outpatient (REF) | payer OTHER ==
[~2022-08-02] MED LIST changes: -KETOROLAC 60MG 2ML VIAL As Ordered ONE; -LIDOCAINE 2% 100MG/5ML SDV (FOR ANES.) As Ordered ONE; -MIDAZOLAM INJ 2MG/2ML VIAL (J2250 PER 1MG) As Ordered ONE; -ONDANSETRON 4MG 2ML VIAL As Ordered ONE; -ROCURONIUM BROMIDE 50 MG/5 ML VIAL As Ordered ONE; -SUGAMMADEX SODIUM 500 MG/5 ML VIAL (BRIDION) As Ordered ONE; -dexameTHASONE 4 MG/ML 1ML VIAL (J1100 PER 1MG) As Ordered ONE; -fentaNYL 100 MCG/2 ML INJECTION As Ordered ONE; -propofoL 200 MG/20 ML VIAL As Ordered ONE
== END ==
LOC: M SFHCWAGY 16:48
PROVIDERS: ATTEND Obstetrics & Gynecology
DX: Z12.4 Encounter for screening for malignant neoplasm of cervix (principal); R87.612 Low grade squamous intraepithelial lesion on cytologic smear of cervix (LGSIL)

== ENCOUNTER → 2022-09-03 | Outpatient (REF) | payer OTHER ==
[2022-09-03 12:56] LABS: BASO % 0.5 % (0.0-1.0); EOS # 0.1 10^3/uL (0.0-0.5); EOS % 1.7 % (0.0-3.0); HEMATOCRIT 41.6 % (36.0-47.0); HEMOGLOBIN 13.4 g/dl (12.0-15.5); LYMPH # 2.5 10^3/uL (1.5-5.0); LYMPH % 31.2 % (24.0-44.0); MEAN CORPUSCULAR HEMOGLOBIN 28.8 pg (27.0-33.0); MEAN CORPUSCULAR HGB CONC 32.2 g/dl (32.0-36.5); MEAN CORPUSCULAR VOLUME 89.5 fl (80.0-96.0); MONO # 0.5 10^3/uL (0.0-0.8); MONO % 6.6 % (2.0-8.0); NEUTROPHILS # 4.8 10^3/uL (1.5-8.5); NEUTROPHILS % 59.6 % (36.0-66.0); PLATELET COUNT, AUTOMATED 282 10^3/uL (150-450); RED BLOOD COUNT 4.65 10^6/uL (4.00-5.40); WHITE BLOOD COUNT 8.1 10^3/uL (4.0-10.0)
[2022-09-03 13:35] LABS: FERRITIN 26.3 NG/ML (7.3-270.7); PERCENT SATURATION 18.6 % (13.2-45.0); TOTAL 25(OH) VITAMIN D 43.4 NG/ML (20.0-100.0)
== END ==
LOC: M SFHCADAM 10:40
PROVIDERS: ATTEND Physician Assistant Medical
DX: D50.9 Iron deficiency anemia, unspecified (principal); E55.9 Vitamin D deficiency, unspecified

== ENCOUNTER → 2022-10-08 | Outpatient (REF) | payer OTHER | LOC: M SFHCWAGY 17:46 | PROVIDERS: ATTEND Obstetrics & Gynecology | DX: N87.1 Moderate cervical dysplasia (principal) ==

== ENCOUNTER 2022-11-08 08:31 | Day surgery (SDC) | payer OTHER ==
[~2022-11-08] VITALS: Ht 160 cm; Wt 82.6 kg
[~2022-11-08 08:31] MED LIST changes: +FERR32TA PO
[2022-11-08 08:57] LABS: HEMOGLOBIN 12.6 g/dl (12.0-15.5); MEAN CORPUSCULAR HEMOGLOBIN 28.7 pg (27.0-33.0); MEAN CORPUSCULAR HGB CONC 32.3 g/dl (32.0-36.5); MEAN CORPUSCULAR VOLUME 88.8 fl (80.0-96.0); PLATELET COUNT, AUTOMATED 283 10^3/uL (150-450); RED BLOOD COUNT 4.39 10^6/uL (4.00-5.40); WHITE BLOOD COUNT 8.8 10^3/uL (4.0-10.0)
[2022-11-08 09:18] LABS: BLOOD UREA NITROGEN 16 MG/DL (9-23); CALCIUM LEVEL 8.5 MG/DL (8.5-10.1); CARBON DIOXIDE LEVEL 27 MMOL/L (20-31); CHLORIDE LEVEL 106 MMOL/L (98-107); CREATININE FOR GFR 0.91 MG/DL (0.55-1.30); GLOMERULAR FILTRATION RATE > 60.0 (>60); GLUCOSE, FASTING 101 MG/DL (60-100); SODIUM LEVEL 138 MMOL/L (136-145)
[2022-11-08] MEDS ORDERED: ACETAMINOPHEN 1000MG 100ML IV BAG As Ordered ONE (09:56)
[2022-11-08] MEDS ORDERED: fentaNYL 100 MCG/2 ML INJECTION As Ordered ONE (09:56)
[2022-11-08] MEDS ORDERED: ONDANSETRON 4MG 2ML VIAL As Ordered ONE (09:56)
[2022-11-08] MEDS ORDERED: MIDAZOLAM INJ 2MG/2ML VIAL As Ordered ONE (09:56)
[2022-11-08] MEDS ORDERED: KETOROLAC 60MG 2ML VIAL As Ordered ONE (09:56)
[2022-11-08] MEDS ORDERED: propofoL 200 MG/20 ML VIAL As Ordered ONE (09:57)
[2022-11-08] MEDS ORDERED: LIDOCAINE 2% 100MG/5ML SDV (FOR ANES.) As Ordered ONE (09:57)
[2022-11-08] MEDS ORDERED: LIDOCAINE W/EPINEPHRINE 1% 20ML VIAL As Ordered ONE (10:44)
[2022-11-08 12:10] VITALS: BP 121/67
== END 2022-11-08 12:17 | disposition home or self-care (01) ==
LOC: M SDC 08:31
PROVIDERS: ATTEND Obstetrics & Gynecology
DX: D06.9 Carcinoma in situ of cervix, unspecified (principal); K21.9 Gastro-esophageal reflux disease without esophagitis; D64.9 Anemia, unspecified; G43.909 Migraine, unspecified, not intractable, without status migrainosus; Z79.899 Other long term (current) drug therapy
CPT/HCPCS: 36415; 57522; 80048; 81025; 85027; 86850; 86900; 86901; 88305; 88307; J0131; J1100; J1885; J2250; J2405; J3010

== ENCOUNTER → 2023-05-26 | Outpatient (REF) | payer OTHER | LOC: M PLALAB 11:34 | PROVIDERS: ATTEND Obstetrics & Gynecology | DX: Z98.890 Other specified postprocedural states (principal) ==

== ENCOUNTER → 2023-09-17 | Outpatient (REF) | payer OTHER ==
[~2023-09-17] MED LIST changes: +FERR325T14 PO; -IRON325T9 PO
[2023-09-17 18:15] LABS: BASO % 0.4 % (0.0-1.0); EOS # 0.2 10^3/uL (0.0-0.5); EOS % 2.4 % (0.0-3.0); HEMATOCRIT 41.6 % (36.0-47.0); HEMOGLOBIN 13.3 g/dl (12.0-15.5); LYMPH # 2.3 10^3/uL (1.5-5.0); LYMPH % 27.8 % (24.0-44.0); MEAN CORPUSCULAR HEMOGLOBIN 28.8 pg (27.0-33.0); MONO # 0.4 10^3/uL (0.0-0.8); MONO % 4.6 % (2.0-8.0); NEUTROPHILS # 5.4 10^3/uL (1.5-8.5); NEUTROPHILS % 64.4 % (36.0-66.0); PLATELET COUNT, AUTOMATED 289 10^3/uL (150-450); RED BLOOD COUNT 4.62 10^6/uL (4.00-5.40); WHITE BLOOD COUNT 8.4 10^3/uL (4.0-10.0)
[2023-09-17 18:46] LABS: PERCENT SATURATION 20.4 % (13.2-45.0)
[2023-09-17 18:48] LABS: FERRITIN 40.4 NG/ML (7.3-270.7); THYROID STIMULATING HORMONE 1.827 uIU/ML (0.55-4.78)
[2023-09-17 18:49] LABS: TOTAL 25(OH) VITAMIN D 41.6 NG/ML (20.0-100.0)
== END ==
LOC: M SFHCADAM 13:33
PROVIDERS: ATTEND Physician Assistant Medical
DX: E55.9 Vitamin D deficiency, unspecified (principal); D50.9 Iron deficiency anemia, unspecified; G43.009 Migraine without aura, not intractable, without status migrainosus

== ENCOUNTER → 2024-08-12 | Outpatient (REF) | payer OTHER ==
[2024-08-17 13:23] LABS: HPV APTIMA Not Detected (Not Detected)
== END ==
LOC: M PLALAB 15:58
PROVIDERS: ATTEND Obstetrics & Gynecology
DX: Z12.4 Encounter for screening for malignant neoplasm of cervix (principal); Z77.9 Other contact with and (suspected) exposures hazardous to health

== ENCOUNTER → 2024-10-15 | Outpatient (REF) | payer OTHER ==
[2024-10-15 18:07] LABS: PERCENT SATURATION 22.8 % (13.2-45.0)
[2024-10-15 18:10] LABS: FERRITIN 55.6 NG/ML (7.3-270.7); HEMATOCRIT 39.6 % (36.0-47.0); HEMOGLOBIN 12.5 g/dl (12.0-15.5); MEAN CORPUSCULAR HEMOGLOBIN 28.5 pg (27.0-33.0); MEAN CORPUSCULAR HGB CONC 31.6 g/dl (32.0-36.5); MEAN CORPUSCULAR VOLUME 90.4 fl (80.0-96.0); PLATELET COUNT, AUTOMATED 304 10^3/uL (150-450); RED BLOOD COUNT 4.38 10^6/uL (4.00-5.40); WHITE BLOOD COUNT 10.1 10^3/uL (4.0-10.0)
== END ==
LOC: M SFHCADAM 17:12
PROVIDERS: ATTEND Physician Assistant Medical
DX: D50.9 Iron deficiency anemia, unspecified (principal)